=== PATIENT | male | born 1985 | race Caucasian/White ===

== ENCOUNTER 2022-11-06 09:31 | Emergency (ER) | payer OTHER, SELFPAY ==
[2022-11-06 09:36] VITALS: BP 115/75; PULSE 115; RESP 18; TEMP 36.4; O2SAT 100
[2022-11-06] MEDS: MORPHINE SULFATE (*CRX) 4 MG/ML INJ IV PUSH (10:00)
[2022-11-06] MEDS: SODIUM CHLORIDE 0.9% IV 1,000 ML 999 ML IV CONT (10:00)
[2022-11-06] MEDS: ONDANSETRON INJ 4 MG/2 ML VIAL IV PUSH (10:00)
[2022-11-06 10:23] LABS: Basophils Percent Auto 0.3 % (0.2-1.2); Eosinophils Absolute Auto 0.2 K/mm3 (0-0.3); Eosinophils Percent Auto 1.2 % (0-4.4); Hemoglobin 15.6 g/dL (14.0-18.0); Immature Granulocyte Absolute 0.04 K/mm3 (0.00-0.031); Immature Granulocyte Percent A 0.3 % (0-0.5); Lymphocytes Absolute Auto 0.46 K/mm3 (0.9-3.2); Lymphocytes Percent Auto 3.8 % (18.3-44.2); Mean Corpuscular HGB Conc 36.3 g/dl (32-36); Mean Corpuscular Hemoglobin 33.1 pg (26-34); Mean Corpuscular Volume 91.1 fl (80-100); Mean Platelet Volume 9.1 fl (7.4-10.4); Monocytes Absolute Auto 0.6 K/mm3 (0.1-0.6); Monocytes Percent Auto 5.1 % (2.6-8.5); Neutrophils Absolute Auto 10.7 K/mm3 (1.3-6.7); Neutrophils Percent Auto 89.3 % (45.5-73.1); Platelet Count Result 284 k/mm3 (150-375); Red Blood Count 4.72 M/mm3 (4.6-6.20); Red Cell Distribution Width 12.5 % (11.5-14.5); White Blood Count 12.1 K/mm3 (4.5-10.0)
[2022-11-06 10:36] LABS: Alanine Aminotransferase 40 U/L (6-50); Albumin Level 4.9 g/dL (3.5-5.1); Alkaline Phosphatase 115 U/L (38-126); Anion Gap 9 mmol/L (8-16); Aspartate Amino Transferase 33 U/L (17-59); Bilirubin,Total 1.7 mg/dL (0.2-1.3); Blood Urea Nitrogen 12 mg/dL (9-20); Calcium 9.6 mg/dL (8.4-10.2); Carbon Dioxide 24 mmol/L (22-30); Chloride 105 mmol/L (98-107); Estimated CRCL calculation 103 ml/min; Estimated Glomerular Filt Rate > 60; Glucose 113 mg/dL (65-110); Lipase 37 U/L (23-300); Potassium 4.3 mmol/L (3.4-5.0); Sodium 138 mmol/L (137-145)
[2022-11-06 11:01] VITALS: BP 140/82; PULSE 109; O2SAT 100
[2022-11-06 11:56] LABS: Appearance Urine Clear (Clear); Bilirubin Urine Negative (Negative); Blood Urine Negative (Negative); Color Urine Yellow (Yellow); Glucose Urine UA Negative (Negative); Ketones Urine 1+ mg/dL (Negative); Leukocyte Esterase Ur Negative LEU/UL (Negative); Nitrate Urine Negative (Negative); Protein Urine Negative (Negative); Specific Grav Ur 1.014 (1.001-1.035); Urobilinogen Urine 0.2 mg/dL (<2.0)
[2022-11-06 12:12] LABS: Add Urine Microscopic? NO
--- NOTE | 2022-11-06 12:42 | ED.GENADULT ---
HPI - General Adult General Chief complaint: Nausea/Vomiting/Diarrhea Stated complaint: cough, vomiting Time Seen by Provider: 11/06/22 09:40 History of Present Illness HPI narrative: Patient is a 37-year-old male who presents ER with reports of cough as well as nausea and vomiting. Ongoing for 3 weeks. Reports he has been around individuals at work who have had similar symptoms. He reports he has been having diarrhea as well. Diarrhea has been quite frequent last couple days. No recent long distance travel or boil or water ingestion. No environmental water exposures that could be contaminated either. No abdominal pain. No blood in his stool or emesis. No loss of consciousness. Due to persistence of symptoms patient felt he should be evaluated in the ER. Related Data Allergies Allergy/AdvReac Type Severity Reaction Status Date / Time No Known Allergies Allergy Verified 11/06/22 09:49 Review of Systems Review of Systems: All systems reviewed & are unremarkable except as noted in HPI and below Constitutional: Constitutional: Denies chills, Denies fatigue and Denies fever(s) ENT: Denies nasal congestion and Denies sore throat Cardiovascular: Cardiovascular: Denies chest pain, Denies rapid heart rate and Denies radiating jaw, neck or arm pain Respiratory: Respiratory: Reports cough, Denies dyspnea and Denies wheezing Gastrointestinal: Gastrointestinal: Denies abdominal pain, Reports diarrhea, Reports nausea and Reports vomiting Genitourinary: Genitourinary: Denies dysuria and Denies urinary frequency PMFSH Past Medical History Medical History (Updated 11/06/22 @ 12:54 by Gianfranco Woodard MD) Healthy adult male Surgical History Surgical History (Updated 11/06/22 @ 12:51 by Gianfranco Woodard MD) 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 HEAD: Normocephalic, atraumatic. ENT: Mucous membranes moist. NECK: Supple. CHEST: Clear to auscultation. No respiratory distress. HEART: Tachycardic and regular. Normal peripheral pulses. ABDOMEN: Soft, nontender, nondistended, normal active bowel sounds. EXTREMITIES: Normal range of motion. No edema. SKIN: Warm, dry, no rash. NEURO: Alert and oriented x3. PSYCH: Normal mood and affect. Course Course Emergency Course: Patient resting comfortably. Abdomen soft and nontender. He has been hydrated. No nausea or vomiting since Zofran. Educated about results. Patient feels comfortable with discharge home with supportive medications. Vital Signs Vital signs: Vital Signs Temperature 97.6 F 11/06/22 09:36 Pulse Rate 115 H 11/06/22 09:36 Respiratory Rate 18 11/06/22 09:36 Blood Pressure 115/75 11/06/22 09:36 Pulse Oximetry 100 11/06/22 09:36 Oxygen Delivery Room Air 11/06/22 09:36 Temperature 97.6 F 11/06/22 09:36 Pulse Rate 109 H 11/06/22 11:01 Respiratory Rate 18 11/06/22 09:36 Blood Pressure 140/82 11/06/22 11:01 Pulse Oximetry 100 11/06/22 11:01 Oxygen Delivery Room Air 11/06/22 09:36 Medical Decision Making Vital Signs Vital Signs: Vital Signs Temperature 97.6 F 11/06/22 09:36 Pulse Rate 115 H 11/06/22 09:36 Respiratory Rate 18 11/06/22 09:36 Blood Pressure 115/75 11/06/22 09:36 Pulse Oximetry 100 11/06/22 09:36 Oxygen Delivery Room Air 11/06/22 09:36 Temperature 97.6 F 11/06/22 09:36 Pulse Rate 109 H 11/06/22 11:01 Respiratory Rate 18 11/06/22 09:36 Blood Pressure 140/82 11/06/22 11:01 Pulse Oximetry 100 11/06/22 11:01 Oxygen Delivery Room Air 11/06/22 09:36 Lab Data 11/06/22 10:05 11/06/22 10:05 Labs: Lab Results 11/06/22 11/06/22 11/06/22 Range/Units 10:05 10:05 11:45 WBC 12.1 H (4.5-10.0) K/mm3 RBC 4.72 (4.6-6.20) M/mm3 Hgb 15.6 (14.0-18.0) g/dL Hct 43.0 (42.0-52.0) % MCV 91.1 (80-100) fl MCH 33.1 (26-3
[2022-11-06 13:56] VITALS: BP 121/78; PULSE 89; RESP 18; O2SAT 99
== END 2022-11-06 13:57 | disposition home or self-care (01) ==
PROVIDERS: Emergency Provider Emergency Medicine; PCP Internal Medicine
DX: K52.9 Noninfective gastroenteritis and colitis, unspecified (principal)
CPT/HCPCS: 36415; 80053; 81003; 83690; 85025; 96361; 96374; 96375; 99284; J2270; J2405; J7030